=== PATIENT | male | born 2000 | race Caucasian/White ===

== ENCOUNTER → 2020-08-07 | Outpatient (CLI) | payer OTHER ==
[2020-08-09 14:13] LABS: COPPER/CRT RATIO 8 (0-49)
== END ==
LOC: LAB 10:25
PROVIDERS: Internal Medicine
DX: D89.89 Other specified disorders involving the immune mechanism, not elsewhere classified (principal); E83.01 Wilson's disease; R76.8 Other specified abnormal immunological findings in serum; R79.0 Abnormal level of blood mineral
CPT/HCPCS: 36415; 80076; 82525; 82570; 83655